=== PATIENT | male | born 1990 | race Caucasian/White ===

== ENCOUNTER 2016-10-08 11:29 | Emergency (ER) | payer OTHER ==
[~2016-10-08] VITALS: Ht 167.6 cm; Wt 77.1 kg
[2016-10-08 11:36] VITALS: BP 142/68
--- NOTE | 2016-10-08 15:13 | NUR ---
PATIENT LEFT WITHOUT BEING SEEN BY DR. MORENO. NO FURTHER CARE PROVIDED FOR PATIENT.
== END 2016-10-08 15:13 | disposition left against medical advice (07) ==
LOC: MED 11:29
DX: H92.02 Otalgia, left ear (principal); Z53.21 Procedure and treatment not carried out due to patient leaving prior to being seen by health care provider

== ENCOUNTER 2019-04-12 10:56 | Emergency (ER) | payer OTHER ==
[~2019-04-12] VITALS: Ht 170.2 cm; Wt 81.6 kg
[2019-04-12 11:05] VITALS: BP 122/68
--- NOTE | 2019-04-12 11:08 | NUR ---
PT AMBULATED TO ER BED 06
--- NOTE | 2019-04-12 11:20 | NUR ---
28/M TO ED WITH C/O EPIGASTRIC PAIN. REPORTS PAIN UPON EATING AND STATES "EVERYTIME I EAT I FEEL LIKE IT GETS STUCK IN THE MIDDLE" REPORTS MILD PAIN UPON PALPATION. NO DISTENTION NOTED. BOWEL SOUNDS ACTIVE X 4. IN BED FOR MSE.
[2019-04-12] MEDS ORDERED: LIDOCAINE VISCOUS 2% 20 ML UDC PO ONE (11:35)
[2019-04-12] MEDS ORDERED: DICYCLOMINE HCL LIQUID 10 MG/5 ML UDC PO ONE (11:35)
[2019-04-12] MEDS ORDERED: ALUMINUM HYD/MAG/SIMETHICONE 30 ML UDC PO ONE (11:35)
[2019-04-12] MEDS ORDERED: PANTOPRAZOLE 40 MG TABEC PO ONE (11:40)
--- NOTE | 2019-04-12 11:45 | NUR ---
PT REFUSED GI COCKTAIL, DR SEALS AWARE. NO FURTHER ORDERS RECIEVED.
[2019-04-12 11:59] VITALS: BP 122/68
--- NOTE | 2019-04-12 11:59 | NUR ---
Patient discharged with v/s stable. Written and verbal after care instructions given and explained. Patient alert, oriented and verbalized understanding of instructions. Ambulatory with steady gait. All questions addressed prior to discharge. ID band removed. Patient advised to follow up with PMD. Rx of PROTONIX given. Patient educated on indication of medication including possible reaction and side effects. Opportunity to ask questions provided and answered.
== END 2019-04-12 11:59 | disposition home or self-care (01) ==
LOC: MED 10:56
DX: K29.70 Gastritis, unspecified, without bleeding (principal)
CPT/HCPCS: 99284